=== PATIENT | female | born 1985 | race Caucasian/White ===

== ENCOUNTER 2017-03-21 20:29 | Emergency (ER) | payer SELFPAY ==
[2017-03-21 22:17] VITALS: BP 104/69
== END 2017-03-21 22:17 | disposition home or self-care (01) ==
LOC: ED 20:29
DX: N61.0 Mastitis without abscess (principal); J06.9 Acute upper respiratory infection, unspecified; J02.9 Acute pharyngitis, unspecified

== ENCOUNTER 2018-12-15 23:11 | Emergency (ER) | payer MEDICAID ==
[~2018-12-15] VITALS: Ht 144.8 cm; Wt 43.5 kg
[2018-12-15 23:23] VITALS: Ht 144.8 cm; Wt 43.5 kg
[2018-12-16 00:42] VITALS: BP 113/64
== END 2018-12-16 00:42 | disposition home or self-care (01) ==
LOC: ED 23:11
DX: J03.90 Acute tonsillitis, unspecified (principal)
CPT/HCPCS: J7512

== ENCOUNTER 2018-12-18 03:51 | Emergency (ER) | payer MEDICAID ==
[~2018-12-18] VITALS: Ht 144.8 cm; Wt 43.5 kg
[2018-12-18 03:55] VITALS: BP 117/64; Ht 144.8 cm; Wt 43.5 kg
== END 2018-12-18 04:30 | disposition home or self-care (01) ==
LOC: ED 03:51
DX: J02.9 Acute pharyngitis, unspecified (principal); R05 Cough; R09.81 Nasal congestion
CPT/HCPCS: J1100; J1885

== ENCOUNTER 2019-02-06 08:50 | Inpatient (IN) | payer MEDICAID ==
[~2019-02-06] VITALS: Ht 144.8 cm; Wt 45.9 kg
[2019-02-06 09:02] VITALS: Ht 144.8 cm; Wt 45.9 kg
--- NOTE | 2019-02-06 10:35 | NUR ---
PT TO CT VIA W/C AT THIS TIME
--- NOTE | 2019-02-06 10:48 | NUR ---
PT BACK FROM CT WITH NO INCIDENT. PT DENIES ANY PAIN AT THIS TIME. PT IS SITTING IN POSITION OF COMFORT READING HER BOOK FROM HOME
[2019-02-06 10:53] LABS: CARBON DIOXIDE 28.4 mmol/L (21-32); CHLORIDE SERUM 104 mmol/L (98-107); CREATININE SERUM 0.6 mg/dL (0.6-1.0); GFR1 > 60 mL/min; GLUCOSE SERUM 82 mg/dL (74-106); POTASSIUM SERUM 4.2 mmol/L (3.5-5.1); SODIUM SERUM 139 mmol/L (136-145)
[2019-02-06 10:57] LABS: ALBUMIN 3.5 g/dL (3.4-5.0); ALKALINE PHOSPHATASE 55 U/L (46-116); ALT/SGPT 22 U/L (14-59); AST/SGOT 10 U/L (15-37); BILIRUBIN TOTAL 0.55 mg/dL (0.20-1.00); LIPASE 78 IU/L (73-393); TOTAL PROTEIN, SERUM 7.3 g/dL (6.4-8.2)
--- NOTE | 2019-02-06 11:30 | NUR ---
PT MEDICATED PER MD ORDERS SEE EMAR.
[2019-02-06 11:46] LABS: BASOPHIL % 0.4 % (0-2); PLATELET COUNT 232 x10^3mcL (130-400); RED CELL DISTRIBUTION WIDTH 13.1 % (11.5-14.5)
[2019-02-06 11:48] LABS: UA SPECIFIC GRAVITY 1.015 (1.005-1.035); microscopic required? YES; urine erythrocyte NEGATIVE (NEGATIVE)
--- NOTE | 2019-02-06 12:00 | NUR ---
ZOSYN INFUSION COMPLETED PT REPORTS A TIGHTNESS SENSATION AROUND THROAT AREA. ER MD INFORMED. PER DR MARQUIS NO FURTHER ORDERS AT THIS TIME. MONITOR FOR ANY RASH DEVELOPING AND REPORT. NO OBVIOUS RASH NOTED AT THIS TIME
--- NOTE | 2019-02-06 12:41 | NUR ---
REPORT GIVEN TO THOM MARIA IN MED SURG FLOOR RESUMING CARE OF PT
--- NOTE | 2019-02-06 12:45 | NUR ---
FLAGYL INFUSION STARTED.
--- NOTE | 2019-02-06 12:49 | NUR ---
PT TRANSPORTED TO MED SURG FLOOR VIA W/C. PT AAOX4 NO DISTRESS. PT DENIES ANY THROAT TIGHTNESS PAIN OR DIFFICULTY BREATHING. VSS UPON DISCHARGE. IV SITE PATENT. THOM MARIA RESUMING CARE OF PT IN TELE FLOOR
[2019-02-06 13:20] VITALS: BP 92/54
--- NOTE | 2019-02-06 13:22 | NUR ---
RECEIVED PT FROM ED VIA [facility]. ORIENTED PT TO ROOM AND SURROUNDINGS. IV NOTED TO RAC PATENT AND INTACT. INSTRUCTED PT ON THE USE OF CALL LIGHT FOR ASSISTANCE. ENDORSED PT TO PRIMARY NURSE THOM
--- NOTE | 2019-02-06 13:23 | NUR ---
RECEIVED THIS 33 Y/O FEMALE FROM ER VIA [facility] FOR ABDOMINAL PAIN 4 DAYS [employer]ING [employer]. ALERT ORIENTEDX4. NOT IN ANY DISTRESS ON ARRIVAL. FLAGYL INFUSING PERIPHERALLY. MD MICHELLE EXPLAINING TO PATIENT ABOUT RESULT OF CT AND PLANNED SURGERY. CALL VO WITHIN REACH.
--- NOTE | 2019-02-06 17:34 | NUR ---
PATIENT STILL IN OPERATING ROOM.
--- NOTE | 2019-02-06 18:28 | NUR ---
REPORT RECEIVED FROM THERAPIST OCCUPATIONALCANDACE HINOJOSA. AWAITING PATIENT ARRIVAL.
--- NOTE | 2019-02-06 18:52 | NUR ---
BACK TO FLOOR VIA [facility] POST LAP APPENDECTOMY. ALERT ORIENTEDX4. RR 16. VITAL SIGNS TAKEN. INSTRUCTED SPLINTING OF ABDOMEN TO REDUCE PAIN WHEN COUGHING OR MOVING. NOTED 3 LAP SITES WITH DERMABOND DRY AND INTACT. CLARKE. INSTRUCTED TO CALL RN FOR ANYU NEED. CALL VO WITHIN REACH.
[2019-02-06 18:55] VITALS: BP 95/53
--- NOTE | 2019-02-06 19:21 | NUR ---
HANDOFF REPORT GIVEN TO CANDACE LIMON.
--- NOTE | 2019-02-06 19:50 | NUR ---
PT IS A/O X4. PT IS MED SURG DENIES ANY SOB OR CHEST PAIN AT THIS TIME. PT HAS PALPABLE PULSES. NO EDEMA NOTED. PT HAS CLEAR LUNG SOUNS BILATERALLY ON RA. BREATHING EVEN AND UNLABORED. PT HAS GANERAL WEAKNESS BUT CAN AMBULATE WITH ASSIT. PT HAD LAP APPY NON RUPTURED 02/06/19, 3 ABD INSCIONS CDI. PT DENIES ANY PAIN AT THIS TIME. PT IV TO RAC INFUSING WELL. CALL LIGHT WITHIN REACH. WILL CONT TO MONITOR.
--- NOTE | 2019-02-06 20:24 | NUR ---
PT BLOOD PRESSURE WAS LOW, READING WERE FOLLWS. 84/50, 94/49, 99/53. PT IS ASYMPTOMATIC. DR ESPINAL WAS NOTIFIED. WILL ANTICIPATE ORDERS. CONT TO MONITOR.
[2019-02-06 21:31] VITALS: BP 94/49
--- NOTE | 2019-02-07 00:32 | NUR ---
PT WAS FEELING NAUSEAS. GAVE ZOFRANX1 PER MD ORDER. WILL CONT TO MONITOR. CALL LIGHT WTHIN REACH.
--- NOTE | 2019-02-07 00:33 | NUR ---
PT BLOOD PRESSURE WAS 88/57, 91/58. PT STATES FEELING DIZZY. PAGED DR ESPINAL, AWAITING CALL BACK. CALL LIGHT WITHIN REACH.
--- NOTE | 2019-02-07 06:00 | NUR ---
PT BLOOD PRESSURE WAS 97/69. SPOKE TO RESIDENTS ABOUT LOW BP READINGS. NO NEW ORDERS AT THIS TIME. WILL ENDORSE TO DAY SHIFT.
[2019-02-07 06:02] VITALS: BP 80/40
--- NOTE | 2019-02-07 06:05 | NUR ---
PT WAS AWAKE THROUGHOUT THE NIGHT. PT DENIES ANY CHEST PAIN OR SOB AT THIS TIME. PT BP WAS CONT LOW THROUGH OUT THE NIGHT, LATEST BP WAS 97/69. MD MADE AWARE. PT RECEIVED BOLUS LAST NIGHT, BP 97/69. PT DENIES ANY DIZZINESS OR HZ AT THIS TIME TIME. PT IS AMBULATORY WITH ASSIST. PT ABD DISTNDED, PT HAS NOT PASSED GAS POST LAP APPY. PT HAS 3 ABD INCSIONS CDI, NO DRAINAGE NOTED. PT IV TO RAC CDI. WILL CONT TO MONITOR. WILL ENDORSE CARE TO DAY SHIFT.
[2019-02-07 06:40] VITALS: BP 97/69
--- NOTE | 2019-02-07 07:10 | NUR ---
HANDOFF REPORT RECEIVED FROM CANDACE CRAVEN. PATIENT AWAKE. DENIES ANY PAIN AT THIS TIME. PASSING GAS. INSTRUCTED TO CALL RN FOR ASSIST.
[2019-02-07 07:41] LABS: CALCIUM 8.5 mg/dL (8.5-10.1); CARBON DIOXIDE 18.2 mmol/L (21-32); CHLORIDE SERUM 108 mmol/L (98-107); CREATININE SERUM 0.5 mg/dL (0.6-1.0); GFR1 > 60 mL/min; GLUCOSE SERUM 95 mg/dL (74-106); POTASSIUM SERUM 4.1 mmol/L (3.5-5.1); SODIUM SERUM 140 mmol/L (136-145)
[2019-02-07 08:20] VITALS: BP 93/52
[2019-02-07 08:32] LABS: BASOPHIL % 0.2 % (0-2); PLATELET COUNT 226 x10^3mcL (130-400)
--- NOTE | 2019-02-07 08:55 | NUR ---
TEAHINGS RE- ACTIVITIES TODAY REVIEWED WITH PATIENT ( OOB TO CHAIR WITH EACH MEAL; USE OF IS DEMONSTRATED TO BE DONE 10X Q2H; AMBULATE 4X DAILY). DEMONSTRATED GOOD TECHNIQUE ON USE OF INCENTIVE SPIROMETER.
--- NOTE | 2019-02-07 09:30 | NUR ---
AMBULATED APPROXIMATELY 150 FEET IN THE HALLWAY. WELL TOLERATED.
--- NOTE | 2019-02-07 10:54 | NUR ---
TAKING A NAP AT THIS TIME. CALL VO WITHIN REACH.
--- NOTE | 2019-02-07 11:39 | NUR ---
ASLEEP ON ROUNDS. FAMILY VISITING AT BEDSIDE. CALL VO WITHIN REACH.
--- NOTE | 2019-02-07 15:13 | NUR ---
AMBULATED AROUND THE UNIT. TOLERATED. DENIES ANY NAUSEA. INCISIONAL PAIN "TOLERABLE" AT THIS TIME.
[2019-02-07 16:57] VITALS: BP 117/77
--- NOTE | 2019-02-07 18:06 | NUR ---
MOM 30CC GIVEN PER REQUEST FOR CONSTIPATION. HAVING DINNER AT THIS TIME. NOT IN ANY DISTRESS.
--- NOTE | 2019-02-07 19:00 | NUR ---
HANDOFF REPORT GIVEN TO CANDACE SANDHU. FAMILY MEMBERS VISITING. PAATIENT NOT IN ANY DISTRESS.
--- NOTE | 2019-02-07 19:54 | NUR ---
PT IS A/O X4. PT IS MED SURG DENIES ANY SOB OR CHEST PAIN AT THIS TIME. PT HAS PALPABLE PULSES. NO EDEMA NOTED. PT HAS CLEAR LUNG SOUNS BILATERALLY ON RA. BREATHING EVEN AND UNLABORED. PT HAS GENERAL WEAKNESS BUT CAN AMBULATE WITH ASSIST. PT HAD LAP APPY NON RUPTURED 02/06/19, X3 ABD INCISIONS CDI, NO DRAINAGE NOTED, MUSHROOM GROWER.PT HAS ACTIVE BOWEL SOUNDS, ABD DISTENDED AND SOFT. LAST BM 02/05, PT WAS GIVEN MOM DURING DAY SHIFT 02/07, WILL CON TO MONITOR. PT PASSED GAS 02/07. PT DENIES ANY PAIN AT THIS TIME. PT IV TO RAC INFUSING WELL.CALL LIGHT WITHIN REACH. WILL CONT TO MONITOR.
[2019-02-07 21:10] VITALS: BP 100/65
--- NOTE | 2019-02-07 23:04 | NUR ---
PT C/O OF PAIN. GAVE TYLENOL PER MD ORDER. WILL CONT TO MONITOR.
--- NOTE | 2019-02-08 00:15 | NUR ---
PT CONT TO C/O OF ABD PAIN. GAVE X1 NORCO PER MD ORDER. WILL CONT TO MONITOR, CALL LIGHT WITHIN REACH.
[2019-02-08 03:52] VITALS: BP 108/50
--- NOTE | 2019-02-08 04:30 | NUR ---
PT RECEIVED ZOFRAN DUE TO N/V PER MD ORDER. WILL CONT TO MONITOR, CALL LIGHT WITHING REACH.
--- NOTE | 2019-02-08 05:20 | NUR ---
PT WAS FEELING NAUSEAS. ZOFRAN X1 GIVEN PER EMAR. PT VOMIT X2 SMALL AMOUNT, LIQUID. DR BUSCH MADE AWARE. WILL CONT TO MONITOR.
--- NOTE | 2019-02-08 05:42 | NUR ---
PT WAS AWAKE THROUGHOUT THE NIGHT. PT DENIES ANY CHEST PAIN OR SOB AT THIS TIME. PT C/O OF N/V, GAVE ZOFRAN. VOMIT X2, DR BUSCH MADE AWARE. PT DENIES ANY DIZZINESS OR DURAN AT THIS TIME TIME. PT IS AMBULATORY WITH ASSIST. PT ABD DISTENDED AND SOFT. PT HAD LARGE BM TODAY. PT PASSED GAS POST LAP APPY. PT HAS 3 ABD INCSIONS CDI, NO DRAINAGE NOTED, NO REDNESS OR SWELLING NOTED. PT IV TO RAC CDI. PT C/O OF PAIN GAVE NORCO X1, TYLNEOL X1 PER EMAR FOR ABD PAIN. WILL CONT TO MONITOR. WILL ENDORSE CARE TO DAY SHIFT.
[2019-02-08 05:48] VITALS: BP 98/68
[2019-02-08 07:14] LABS: BASOPHIL % 0.3 % (0-2); PLATELET COUNT 221 x10^3mcL (130-400); RED CELL DISTRIBUTION WIDTH 13.3 % (11.5-14.5)
--- NOTE | 2019-02-08 07:19 | NUR ---
HANDOFF REPORT RECEIVED FROM CANDACE SANDHU. PATIENT AWAKE. DENIES ANY NAUSEA. ABDOMINAL INCISIONS WITH DERMABOND DRY AND INTACT. ABDOMINAL PAIN LEVEL 5/10. SEE EMAR.
[2019-02-08 07:32] LABS: CALCIUM 7.8 mg/dL (8.5-10.1); CARBON DIOXIDE 22.2 mmol/L (21-32); CHLORIDE SERUM 110 mmol/L (98-107); CREATININE SERUM 0.6 mg/dL (0.6-1.0); GFR1 > 60 mL/min; GLUCOSE SERUM 115 mg/dL (74-106); POTASSIUM SERUM 4.5 mmol/L (3.5-5.1); SODIUM SERUM 142 mmol/L (136-145)
--- NOTE | 2019-02-08 07:46 | NUR ---
STARTED ON REGLAN. NORCO GIVEN FOR 5/10 PAIN.
--- NOTE | 2019-02-08 07:54 | NUR ---
MD MICHELLE HERE TO SEE PATIENT. UPDATED OF PATIENT FROM LAST NIGHTS NAUSEA/VOMITING AND BOWEL ACTIVITY.
[2019-02-08 08:17] VITALS: BP 96/55
--- NOTE | 2019-02-08 10:37 | NUR ---
OOB TO CHAIR. DENIES ANY DISCOMFORT OR NAUSEA.
[2019-02-08] MEDS ORDERED: QUALITY CHOICE200 M2 PO (10:49)
[2019-02-08] MEDS ORDERED: ZOF4 PO (10:49)
--- NOTE | 2019-02-08 11:51 | NUR ---
"I DID NOT EAT BREAKFAST COZ I AM AFRAID I WILL THROW UP". DENIES NAUSEA. ENCOURAGED TO EAT, AMBULATE AND USE INCENTIVE SPIROMETER INSTRUCTED.
[2019-02-08 13:45] VITALS: BP 96/55
--- NOTE | 2019-02-08 13:51 | NUR ---
MILD NAUSEA. AMBULATING. FOR DISCHARGE.
--- NOTE | 2019-02-08 16:28 | NUR ---
AMBULATING. DENIES ANY NAUSEA. STATED "I HAD A POO POO (BOWEL MOVEMENT) AFTER YOU GAVE ME THE MEDICINE (MILK OF MAGNESIA)" . MD MICHELLE MADE AWARE AND STATED " PATIENT MAY GO HOME. THANK YOU." PATIENT NOTIFIED OF DISCHARGE.
--- NOTE | 2019-02-08 18:22 | NUR ---
DISCHARGE INSTRUCTIONS REVIEWED WITH PATIENT AND STATED UNDERSTANDING. HEP LOCK AND IVF DISCONTINUED. HAD DINNER. NO COMPLAINTS OF NAUSEA OR PAIN. ESCORTED OFF THE FLOOR BY SCOTT SAMANIEGO.
== END 2019-02-08 18:29 | disposition home or self-care (01) | DRG 234 ==
LOC: ED 08:50 → MU 11:49
PROVIDERS: Emergency Medicine; Surgery; ADMIT General Practice
PROC: 0DTJ4ZZ Resection of Appendix, Percutaneous Endoscopic Approach (ICD-10-PCS; principal; 2019-02-06 16:00)
DX: K35.80 Unspecified acute appendicitis (principal); Z68.21 Body mass index [BMI] 21.0-21.9, adult
CPT/HCPCS: G0378; J0330; J1170; J1885; J2175; J2250; J2405; J2543; J2704; J2710; J3010; J3490; J7030; J7042; J7120; J8597

== ENCOUNTER 2019-09-24 04:25 | Emergency (ER) | payer MEDICAID ==
[~2019-09-24] VITALS: Ht 144.8 cm; Wt 45.9 kg
[~2019-09-24 04:25] MED LIST: QUALITY CHOICE200 M2 PO; ZOF4 PO
[2019-09-24 04:34] VITALS: Ht 144.8 cm; Wt 45.9 kg
[2019-09-24 06:37] VITALS: BP 99/42
== END 2019-09-24 06:37 | disposition home or self-care (01) ==
LOC: ED 04:25
DX: O26.891 Other specified pregnancy related conditions, first trimester (principal); R07.89 Other chest pain; M25.512 Pain in left shoulder; Z3A.08 8 weeks gestation of pregnancy

== ENCOUNTER 2020-03-17 01:39 | Emergency (ER) | payer MEDICAID ==
[~2020-03-17] VITALS: Ht 144.8 cm; Wt 54.0 kg
[2020-03-17 02:33] LABS: BASOPHIL % 1.9 % (0-2); PLATELET COUNT 231 x10^3mcL (130-400); RED CELL DISTRIBUTION WIDTH 12.9 % (11.5-14.5)
[2020-03-17 02:40] LABS: CALCIUM 8.1 mg/dL (8.5-10.1); CARBON DIOXIDE 24.2 mmol/L (21-32); CHLORIDE SERUM 103 mmol/L (98-107); CREATININE SERUM 0.7 mg/dL (0.6-1.0); GFR1 > 60 mL/min; GLUCOSE SERUM 105 mg/dL (74-106); POTASSIUM SERUM 3.9 mmol/L (3.5-5.1); SODIUM SERUM 135 mmol/L (136-145)
[2020-03-17 02:42] LABS: ALKALINE PHOSPHATASE 165 U/L (46-116); ALT/SGPT 17 U/L (14-59); AST/SGOT 20 U/L (15-37); BILIRUBIN TOTAL 0.19 mg/dL (0.20-1.00); TOTAL PROTEIN, SERUM 6.4 g/dL (6.4-8.2)
[2020-03-17 02:48] LABS: ALBUMIN 2.5 g/dL (3.4-5.0)
[2020-03-17 07:13] VITALS: BP 93/59
== END 2020-03-17 07:13 | disposition home or self-care (01) ==
LOC: ED 01:39
PROVIDERS: Student in an Organized Health Care Education/Training Program
DX: O26.893 Other specified pregnancy related conditions, third trimester (principal); M62.838 Other muscle spasm; R07.89 Other chest pain; Z90.89 Acquired absence of other organs; Z3A.36 36 weeks gestation of pregnancy
CPT/HCPCS: 85378; J7040; Q0092; Q9967